=== PATIENT | male | born 1985 | race Caucasian/White ===

== ENCOUNTER 2022-02-03 13:19 | Inpatient (IN) | payer MEDICAID ==
[~2022-02-03] VITALS: Ht 172.7 cm; Wt 90.7 kg
[2022-02-03] MEDS ORDERED: GLYCOPYRROLATE 0.2 MG/ML VIAL IJ ONE (13:20)
[2022-02-03] MEDS ORDERED: NEOSTIGMINE METHYLSULFATE 10 MG/10 ML VIAL IM ONE (13:20)
[2022-02-03] MEDS ORDERED: KETOROLAC TROMETHAMINE 30 MG INJ IM ONE (13:20)
[2022-02-03] MEDS ORDERED: DEXAMETHASONE SOD PHOSPHATE 4 MG INJ IV ONE (13:20)
[2022-02-03] MEDS ORDERED: ONDANSETRON 4 MG/2 ML VIAL IV ONE ×4 (13:20→21:30)
[2022-02-03] MEDS ORDERED: CEFAZOLIN 1 G VIAL IM ONE (13:20)
[2022-02-03] MEDS ORDERED: PROPOFOL 200 MG/20 ML BOTTLE IV ONE (13:20)
[2022-02-03] MEDS ORDERED: LIDOCAINE-MPF 2% 5 ML VIAL IJ ONE (13:20)
[2022-02-03] MEDS ORDERED: SUCCINYLCHOLINE CHLORIDE 200 MG/10 ML VIAL IV ONE (13:20)
[2022-02-03] MEDS ORDERED: IV NORMAL SALINE 1000 ML BAG IV ONE (13:45)
[2022-02-03] MEDS ORDERED: HYDROMORPHONE 1 MG/1 ML DISP.SYRIN IV ONE ×4 (13:45→21:30)
[2022-02-03 13:53] LABS: HEMATOCRIT 40.9 % (36.7-47.1); MEAN CORPUSCULAR HEMOGLOBIN 33.7 uug (23.8-33.4); MEAN CORPUSCULAR VOLUME 96.6 fL (73.0-96.2); PLATELET COUNT (AUTO) 258 K/uL (152-348)
[2022-02-03] MEDS ORDERED: ONDANSETRON 4 MG/2 ML VIAL ONE ×3 (13:54→21:30)
[2022-02-03] MEDS ORDERED: HYDROMORPHONE 1 MG/1 ML DISP.SYRIN ONE ×4 (13:54→21:30)
[2022-02-03 14:00] LABS: CREATININE 0.9 mg/dL (0.6-1.3); POTASSIUM 3.4 mmol/L (3.5-5.1)
[2022-02-03 14:06] LABS: BILIRUBIN,DIRECT 0.1 mg/dL (0.0-0.2); BILIRUBIN,TOTAL 0.7 mg/dL (0.2-1.0); TOTAL PROTEIN, SERUM 7.7 g/dL (6.4-8.2)
--- NOTE | 2022-02-03 15:12 | NUR ---
Paged EPIC line for panel call. Kriss Houston to call back.
--- NOTE | 2022-02-03 15:35 | NUR ---
Call for Med Surg bed. No rooms currently avaliable. Told to wait an hour or so for patients to be discharged.
[2022-02-03] MEDS ORDERED: REMEDY ESSENTIAL ZINC PASTE 113 GM TP PRN (15:45)
[2022-02-03] MEDS ORDERED: ACETAMINOPHEN 325 MG TABLET PO PRN (15:45)
[2022-02-03] MEDS ORDERED: MORPHINE SULFATE 2 MG/1 ML DISP.SYRIN IV PRN ×2 (15:45→23:45)
[2022-02-03] MEDS ORDERED: IV D5 1/2 NS 1000 ML 1,000 ML IV PRN (15:45)
[2022-02-03] MEDS ORDERED: MAGNESIUM HYDROXIDE 30 ML LIQUID UDC PO PRN (15:45)
--- NOTE | 2022-02-03 17:00 | NUR ---
Dr. Bourne called -- patient's surgrey will be tomorrow at 1337 Procedure: reduction and repair of ventral hernia with possible bowel obstruction
--- NOTE | 2022-02-03 17:00 | NUR ---
possible bowl resection
[2022-02-03] MEDS ORDERED: MORPHINE SULFATE 2 MG/1 ML DISP.SYRIN ONE (18:07)
--- NOTE | 2022-02-03 18:46 | NUR ---
OR informed consent signed by patient
[2022-02-03] MEDS ORDERED: ACETAMINOPHEN 325 MG TABLET ONE (19:05)
--- NOTE | 2022-02-03 19:40 | NUR ---
Report given Jeff LOWERY
[2022-02-04] MEDS ORDERED: HYDROMORPHONE 1 MG/1 ML DISP.SYRIN ONE ×6 (00:03→14:43)
[2022-02-04] MEDS ORDERED: LORAZEPAM 2 MG/1 ML VIAL ONE (00:54)
[2022-02-04] MEDS ORDERED: LORAZEPAM 2 MG/1 ML VIAL IV ONE (01:00)
[2022-02-04] MEDS ORDERED: ONDANSETRON 4 MG/2 ML VIAL ONE (02:31)
[2022-02-04] MEDS ORDERED: MORPHINE SULFATE 4 MG/1 ML DISP.SYRIN ONE (02:32)
[2022-02-04] MEDS: ONDANSETRON 4 MG/2 ML VIAL IV PRN ×2 (02:36→12:58)
[2022-02-04] MEDS ORDERED: HYDROMORPHONE 1 MG/1 ML DISP.SYRIN IV ONE ×3 (04:15→06:30)
--- NOTE | 2022-02-04 04:19 | NUR ---
Carlie ware in ED - 02/04/22 at 0821 by JAMEL Pt medically cleared by Dr. Cook.
[2022-02-04] MEDS ORDERED: BUPIVACAINE/EPI PF 0.25% 10 ML VIAL IJ ONE (06:24)
[2022-02-04 06:26] LABS: HEMATOCRIT 40.8 % (36.7-47.1); MEAN CORPUSCULAR HEMOGLOBIN 33.6 uug (23.8-33.4); MEAN CORPUSCULAR VOLUME 97.6 fL (73.0-96.2); PLATELET COUNT (AUTO) 247 K/uL (152-348)
[2022-02-04 06:39] LABS: CREATININE 0.8 mg/dL (0.6-1.3); MAGNESIUM 1.6 mg/dL (1.8-2.4); PHOSPHOROUS 3.7 mg/dL (2.5-4.9); POTASSIUM 3.4 mmol/L (3.5-5.1)
[2022-02-04] MEDS ORDERED: ROCURONIUM BROMIDE 50 MG/5 ML VIAL ONE ×2 (06:57→08:05)
[2022-02-04] MEDS ORDERED: FENTANYL CITRATE 100 MCG/2 ML AMPUL ONE ×6 (06:57→13:11)
[2022-02-04] MEDS ORDERED: MORPHINE SULFATE 4 MG/1 ML DISP.SYRIN IV PRN (07:05)
[2022-02-04] MEDS ORDERED: SEVOFLURANE 250 ML BOTTLE ONE (07:59)
[2022-02-04] MEDS ORDERED: PANTOPRAZOLE SODIUM 40 MG VIAL IV SCH (09:00)
[2022-02-04] MEDS ORDERED: MIDAZOLAM HCL 2 MG/2 ML VIAL ONE (09:26)
[2022-02-04] MEDS ORDERED: METOCLOPRAMIDE HCL 10 MG/2 ML VIAL IV SCH (12:00)
--- NOTE | 2022-02-04 12:59 | NUR ---
Patient absent from the unit since 0700
[2022-02-04] MEDS ORDERED: CEFAZOLIN 1 G in IV DEXTROSE 5% 50 ML IV SCH (15:30)
== END 2022-02-04 15:27 | disposition short-term general hospital (02) | DRG 224 ==
LOC: ER 13:19 → MED 13:20 → ER 02-04 15:20
PROVIDERS: ADMIT Registered Nurse; ATTEND Nurse Practitioner Acute Care
PROC: 0DN80ZZ Release Small Intestine, Open Approach (ICD-10-PCS; principal; 2022-02-04)
DX: K43.0 Incisional hernia with obstruction, without gangrene (principal); K56.51 Intestinal adhesions [bands], with partial obstruction; E66.9 Obesity, unspecified; Z68.30 Body mass index [BMI] 30.0-30.9, adult
CPT/HCPCS: 36415; 71045; 83690; 83735; 84100; 85025; 85730; 93005; A4649; G0378; J0330; J0690; J1100; J1170; J1885; J2060; J2250; J2270; J2405; J3010; J3490; J7040; J7120